=== PATIENT | male | born 1965 | race African-American/Black ===

== ENCOUNTER 2020-10-22 11:21 | Inpatient (IN) | payer OTHER ==
[2020-10-22 12:20] VITALS: BMI 46.7
[2020-10-22] MEDS ORDERED: LORazepam 1 MG TABLET PO PRN (12:36)
[2020-10-22] MEDS ORDERED: MAGNESIUM CITRATE 300 ML BOTTLE PO PRN (12:36)
[2020-10-22] MEDS ORDERED: IBUPROFEN 400 MG TABLET (FP) PO PRN (12:36)
[2020-10-22] MEDS ORDERED: METHOCARBAMOL 500 MG TABLET PO PRN (12:36)
[2020-10-22] MEDS ORDERED: NICOTINE POLACRILEX 2 MG GUM BUC PRN (12:36)
[2020-10-22] MEDS ORDERED: MAG HYDROX/AL HYDROX/SIMETH 30 ML UNIT-DOSE CUP PO PRN (12:36)
[2020-10-22] MEDS ORDERED: ONDANSETRON *ODT* 4 MG TABLET SL PRN (12:36)
[2020-10-22] MEDS ORDERED: ACETAMINOPHEN 325 MG TABLET (FP) PO PRN ×2 (12:36)
[2020-10-22] MEDS ORDERED: MAGNESIUM HYDROX 2400MG/30ML ORAL SUSPENSION 30 ML CUP PO PRN (12:36)
[2020-10-22] MEDS ORDERED: BISMUTH SUBSALICYLATE 262 MG/15 ML BTL PO PRN (12:36)
[2020-10-22] MEDS ORDERED: MENTHOL/PHENOL 1 EACH UD MM PRN (12:36)
[2020-10-22] MEDS: metFORMIN HCL 500 MG TABLET (FP) PO SCH ×2 (13:56→17:35)
[2020-10-22] MEDS: PRENATAL VITAMINS W/ FOLIC ACID TABLET (FP) PO SCH (13:56)
[2020-10-22] MEDS: LISINOPRIL 20 MG TABLET PO SCH (13:56)
[2020-10-22] MEDS: NICOTINE 14 MG/24 HOURS TOPICAL PATCH TD SCH (13:57)
[2020-10-22] MEDS: hydrOXYzine PAMOATE 25 MG CAPSULE (FP) PO SCH ×3 (13:58→23:05)
[2020-10-22] MEDS: ALLOPURINOL 300 MG TABLET (FP) PO SCH (14:01)
[2020-10-22] MEDS: glipiZIDE 5 MG TABLET (FP) PO SCH (14:01)
[2020-10-22 16:05] LABS: BLOOD UREA NITROGEN 13.3 mg/dL (7-18); CALCIUM 9.4 mg/dL (8.5-10.1); HEMATOCRIT 41.5 % (35.4-49); HEMOGLOBIN 13.5 GM/dL (11.7-16.9); MCH 29.4 pg (25.7-33.7); MCHC 32.5 g/dl (32.0-35.9); MEAN CELL VOLUME 90.5 fl (80-96); MEAN PLT VOLUME 7.2 fl (7.5-11.1); PLATELET COUNT 291 10^3/uL (134-434); RBC 4.59 M/mm3 (4.00-5.60); RDW 15.4 % (11.9-15.9); WHITE BLOOD COUNT 9.5 K/mm3 (4.0-10.0)
[2020-10-22 16:09] LABS: CREATININE 1.9 mg/dL (0.55-1.3)
[2020-10-22 16:11] LABS: BILIRUBIN,TOTAL 0.4 mg/dL (0.2-1); TOT PROT 8.2 g/dl (6.4-8.2)
[2020-10-22] MEDS: LORazepam 2 MG TABLET PO SCH ×2 (17:35→23:05)
[2020-10-22] MEDS: ATORVASTATIN CA 40 MG TABLET (FP) PO SCH (23:04)
[2020-10-22] MEDS: MELATONIN 5 MG TABLETS PO SCH (23:05)
[2020-10-22] MEDS: THIAMINE HCL 100 MG TABLET (FP) PO SCH (23:05)
[2020-10-23] MEDS: hydrOXYzine PAMOATE 25 MG CAPSULE (FP) PO SCH ×5 (05:48→22:42)
[2020-10-23] MEDS: LORazepam 2 MG TABLET PO SCH ×4 (05:50→22:41)
[2020-10-23] MEDS: metFORMIN HCL 500 MG TABLET (FP) PO SCH ×2 (06:19→17:35)
[2020-10-23] MEDS: glipiZIDE 5 MG TABLET (FP) PO SCH (06:19)
[2020-10-23] MEDS: PRENATAL VITAMINS W/ FOLIC ACID TABLET (FP) PO SCH (10:28)
[2020-10-23] MEDS: NICOTINE 14 MG/24 HOURS TOPICAL PATCH TD SCH (10:29)
[2020-10-23] MEDS: LISINOPRIL 20 MG TABLET PO SCH (10:29)
[2020-10-23] MEDS: ALLOPURINOL 300 MG TABLET (FP) PO SCH (10:29)
[2020-10-23] MEDS: INSULIN SLIDING SCALE (NOVOLOG) 1 VIAL SQ SCH ×3 (11:30→23:20)
[2020-10-23] MEDS: ATORVASTATIN CA 40 MG TABLET (FP) PO SCH (21:57)
[2020-10-23] MEDS: MELATONIN 5 MG TABLETS PO SCH (22:41)
[2020-10-23] MEDS: THIAMINE HCL 100 MG TABLET (FP) PO SCH (22:42)
[2020-10-24] MEDS: hydrOXYzine PAMOATE 25 MG CAPSULE (FP) PO SCH ×5 (05:18→22:04)
[2020-10-24] MEDS: LORazepam 1 MG TABLET PO SCH ×4 (05:18→22:00)
[2020-10-24] MEDS: INSULIN SLIDING SCALE (NOVOLOG) 1 VIAL SQ SCH ×4 (06:16→21:32)
[2020-10-24] MEDS: glipiZIDE 5 MG TABLET (FP) PO SCH (06:16)
[2020-10-24] MEDS: metFORMIN HCL 500 MG TABLET (FP) PO SCH ×2 (06:16→17:24)
[2020-10-24] MEDS: PRENATAL VITAMINS W/ FOLIC ACID TABLET (FP) PO SCH (10:19)
[2020-10-24] MEDS: NICOTINE 14 MG/24 HOURS TOPICAL PATCH TD SCH (10:20)
[2020-10-24] MEDS: LISINOPRIL 20 MG TABLET PO SCH (10:20)
[2020-10-24] MEDS: ALLOPURINOL 100 MG TABLET (FP) PO SCH (10:21)
[2020-10-24] MEDS: ATORVASTATIN CA 40 MG TABLET (FP) PO SCH (22:00)
[2020-10-24] MEDS: THIAMINE HCL 100 MG TABLET (FP) PO SCH (22:00)
[2020-10-24] MEDS: MELATONIN 5 MG TABLETS PO SCH (22:00)
[2020-10-25] MEDS ORDERED: LORazepam 0.5 MG TABLET PO PRN
[2020-10-25] MEDS: hydrOXYzine PAMOATE 25 MG CAPSULE (FP) PO SCH ×5 (06:06→22:41)
[2020-10-25] MEDS: LORazepam 0.5 MG TABLET PO SCH ×4 (06:09→22:42)
[2020-10-25] MEDS: metFORMIN HCL 500 MG TABLET (FP) PO SCH ×2 (06:10→18:08)
[2020-10-25] MEDS: glipiZIDE 5 MG TABLET (FP) PO SCH (06:10)
[2020-10-25] MEDS: INSULIN SLIDING SCALE (NOVOLOG) 1 VIAL SQ SCH ×4 (06:13→22:48)
[2020-10-25] MEDS: NICOTINE 14 MG/24 HOURS TOPICAL PATCH TD SCH (10:10)
[2020-10-25] MEDS: PRENATAL VITAMINS W/ FOLIC ACID TABLET (FP) PO SCH (10:10)
[2020-10-25] MEDS: LISINOPRIL 20 MG TABLET PO SCH (10:10)
[2020-10-25] MEDS: ALLOPURINOL 100 MG TABLET (FP) PO SCH (10:10)
[2020-10-25 12:32] LABS: CALCIUM 9.8 mg/dL (8.5-10.1)
[2020-10-25 12:33] LABS: BLOOD UREA NITROGEN 17.1 mg/dL (7-18)
[2020-10-25 12:36] LABS: CREATININE 1.3 mg/dL (0.55-1.3)
[2020-10-25] MEDS ORDERED: ALLOPURINOL 100 MG TABLET (FP) PO ONE ×2 (13:34→13:35)
[2020-10-25] MEDS: THIAMINE HCL 100 MG TABLET (FP) PO SCH (22:41)
[2020-10-25] MEDS: ATORVASTATIN CA 40 MG TABLET (FP) PO SCH (22:41)
[2020-10-25] MEDS: MELATONIN 5 MG TABLETS PO SCH (22:41)
[2020-10-26] MEDS ORDERED: LORazepam 0.5 MG TABLET PO ONE (05:00)
[2020-10-26] MEDS: hydrOXYzine PAMOATE 25 MG CAPSULE (FP) PO SCH ×2 (05:26→09:00)
[2020-10-26] MEDS: glipiZIDE 5 MG TABLET (FP) PO SCH (06:02)
[2020-10-26] MEDS: metFORMIN HCL 500 MG TABLET (FP) PO SCH (06:02)
[2020-10-26] MEDS: INSULIN SLIDING SCALE (NOVOLOG) 1 VIAL SQ SCH (06:03)
[2020-10-26] MEDS: NICOTINE 14 MG/24 HOURS TOPICAL PATCH TD SCH (09:00)
[2020-10-26] MEDS: LISINOPRIL 20 MG TABLET PO SCH (09:00)
[2020-10-26] MEDS: PRENATAL VITAMINS W/ FOLIC ACID TABLET (FP) PO SCH (09:00)
[2020-10-26] MEDS ORDERED: ALLOPURINOL 300 MG TABLET (FP) PO SCH (10:00)
[2020-10-26 10:05] VITALS: BP 135/88; PULSE 108; TEMP 97.9
== END 2020-10-26 09:36 | disposition home or self-care (01) | DRG 774 ==
LOC: YASAS 11:21 → Y6N 12:39
PROVIDERS: ADMIT Allergy & Immunology; ATTEND Allergy & Immunology
PROC: HZ2ZZZZ Detoxification Services for Substance Abuse Treatment (ICD-10-PCS; principal; 2020-10-22)
DX: F10.230 Alcohol dependence with withdrawal, uncomplicated (principal); F14.20 Cocaine dependence, uncomplicated; F17.210 Nicotine dependence, cigarettes, uncomplicated; I10 Essential (primary) hypertension; E78.5 Hyperlipidemia, unspecified; E11.9 Type 2 diabetes mellitus without complications; R79.89 Other specified abnormal findings of blood chemistry; M10.9 Gout, unspecified; E66.9 Obesity, unspecified; Z68.42 Body mass index [BMI] 45.0-49.9, adult; R00.0 Tachycardia, unspecified; Z79.84 Long term (current) use of oral hypoglycemic drugs; Z59.0 Homelessness
CPT/HCPCS: 36415; 71046-TC-FY; 80048; 80053; 82962; 85027; 86780; 93005; 93010; C9803; U0003; U0005

== ENCOUNTER 2021-08-26 13:45 | Inpatient (IN) | payer OTHER ==
[2021-08-26 14:27] VITALS: BMI 41.1
[2021-08-26] MEDS ORDERED: guaiFENesin 200 MG/10 ML 10 ML UNIT-DOSE CUPS PO PRN (15:20)
[2021-08-26] MEDS ORDERED: MAGNESIUM HYDROX 2400MG/30ML ORAL SUSPENSION 30 ML CUP PO PRN (15:20)
[2021-08-26] MEDS ORDERED: MAGNESIUM CITRATE 300 ML BOTTLE PO PRN (15:20)
[2021-08-26] MEDS ORDERED: NICOTINE 10 MG CARTRIDGE (INHALER) IH PRN (15:20)
[2021-08-26] MEDS ORDERED: MAG HYDROX/AL HYDROX/SIMETH 30 ML UNIT-DOSE CUP PO PRN (15:20)
[2021-08-26] MEDS ORDERED: LOPERAMIDE HCL 2 MG CAPSULE PO PRN (15:20)
[2021-08-26] MEDS ORDERED: P-EPHED 60MG/TRIPROLIDI 2.5MG TABLET PO PRN (15:20)
[2021-08-26] MEDS ORDERED: IBUPROFEN 400 MG TABLET (FP) PO PRN (15:20)
[2021-08-26] MEDS ORDERED: NALOXONE HCL 0.4 MG/ML VIAL IM PRN (15:20)
[2021-08-26] MEDS: MELATONIN 5 MG TABLETS PO SCH (21:51)
[2021-08-26] MEDS: THIAMINE HCL 100 MG TABLET (FP) PO SCH (21:51)
[2021-08-26] MEDS: NICOTINE 7 MG/24 HOURS TOPICAL PATCH TD SCH (21:51)
[2021-08-26] MEDS: hydrOXYzine PAMOATE 25 MG CAPSULE (FP) PO SCH (21:51)
[2021-08-27] MEDS: hydrOXYzine PAMOATE 25 MG CAPSULE (FP) PO SCH ×5 (06:09→21:21)
[2021-08-27] MEDS ORDERED: ALLOPURINOL 300 MG TABLET (FP) PO SCH (10:00)
[2021-08-27] MEDS: NICOTINE 7 MG/24 HOURS TOPICAL PATCH TD SCH (10:21)
[2021-08-27] MEDS: metFORMIN HCL 500 MG TABLET (FP) PO SCH ×2 (10:21→16:38)
[2021-08-27] MEDS: LISINOPRIL 20 MG TABLET PO SCH (10:21)
[2021-08-27] MEDS: PRENATAL VITAMINS W/ FOLIC ACID TABLET (FP) PO SCH (10:21)
[2021-08-27] MEDS: glipiZIDE 5 MG TABLET (FP) PO SCH (10:21)
[2021-08-27] MEDS: ALLOPURINOL 100 MG TABLET (FP) PO SCH (12:55)
[2021-08-27 13:51] LABS: HEMATOCRIT 39.1 % (35.4-49); HEMOGLOBIN 12.5 GM/dL (11.7-16.9); MCHC 31.9 g/dl (32.0-35.9); MEAN PLT VOLUME 7.8 fl (7.5-11.1); PLATELET COUNT 270 10^3/uL (134-434); RBC 4.16 M/mm3 (4.00-5.60); RDW 15.3 % (11.9-15.9); WHITE BLOOD COUNT 8.2 K/mm3 (4.0-10.0)
[2021-08-27 14:11] LABS: CALCIUM 9.2 mg/dL (8.5-10.1)
[2021-08-27 14:12] LABS: ALBUMIN 3.4 g/dl (3.4-5.0)
[2021-08-27 14:15] LABS: BILIRUBIN,TOTAL 0.3 mg/dL (0.2-1)
[2021-08-27 14:17] LABS: TOT PROT 6.8 g/dl (6.4-8.2)
[2021-08-27 14:19] LABS: BLOOD UREA NITROGEN 16.6 mg/dL (7-18); CREATININE 1.2 mg/dL (0.55-1.3)
[2021-08-27 14:59] LABS: SYPHILIS W/ RPR CONF NON-REACTIVE (NONREACTIVE)
[2021-08-27 19:15] LABS: EPI CELLS 22 /uL (0-25.1); HYALINE CASTS 1 /uL (0-3.1); PH,URINE 5.5 (5.0-8.0); URINE APPEARANCE CLEAR; URINE BACTERIA 162 /uL (0-1359); URINE BILIRUBIN NEGATIVE (NEGATIVE); URINE COLOR YELLOW; URINE GLUCOSE (UA) NEGATIVE (NEGATIVE); URINE KETONE NEGATIVE (NEGATIVE); URINE LEUK ESTERASE NEGATIVE (NEGATIVE); URINE NITRITE NEGATIVE (NEGATIVE); URINE PROTEIN 1+ (NEGATIVE); URINE RBC 8 /uL (0-23.9); URINE UROBILINOGEN 0.2 mg/dL (0.2-1.0); URINE WBC 11 /uL (0-25.8)
[2021-08-27] MEDS: THIAMINE HCL 100 MG TABLET (FP) PO SCH (21:19)
[2021-08-27] MEDS: ACETAMINOPHEN 325 MG TABLET (FP) PO PRN (21:20)
[2021-08-27] MEDS: ATORVASTATIN CA 40 MG TABLET (FP) PO SCH (21:20)
[2021-08-27] MEDS: MELATONIN 5 MG TABLETS PO SCH (21:21)
[2021-08-28] MEDS: metFORMIN HCL 500 MG TABLET (FP) PO SCH ×2 (06:46→16:37)
[2021-08-28] MEDS: glipiZIDE 5 MG TABLET (FP) PO SCH (06:46)
[2021-08-28] MEDS: hydrOXYzine PAMOATE 25 MG CAPSULE (FP) PO SCH ×5 (06:47→21:40)
[2021-08-28] MEDS: NICOTINE 7 MG/24 HOURS TOPICAL PATCH TD SCH (10:11)
[2021-08-28] MEDS: PRENATAL VITAMINS W/ FOLIC ACID TABLET (FP) PO SCH (10:11)
[2021-08-28] MEDS: LISINOPRIL 20 MG TABLET PO SCH (10:11)
[2021-08-28] MEDS: ALLOPURINOL 100 MG TABLET (FP) PO SCH (10:12)
[2021-08-28 11:11] LABS: SARS-CoV-2 NAA Not Detected (Not Detected)
[2021-08-28] MEDS: INSULIN SLIDING SCALE (NOVOLOG) 1 VIAL SQ SCH (16:38)
[2021-08-28] MEDS: THIAMINE HCL 100 MG TABLET (FP) PO SCH (21:39)
[2021-08-28] MEDS: ATORVASTATIN CA 40 MG TABLET (FP) PO SCH (21:39)
[2021-08-28] MEDS: MELATONIN 5 MG TABLETS PO SCH (21:39)
[2021-08-29] MEDS: glipiZIDE 5 MG TABLET (FP) PO SCH (06:59)
[2021-08-29] MEDS: metFORMIN HCL 500 MG TABLET (FP) PO SCH ×2 (06:59→16:40)
[2021-08-29] MEDS: hydrOXYzine PAMOATE 25 MG CAPSULE (FP) PO SCH ×5 (07:00→21:26)
[2021-08-29] MEDS: INSULIN SLIDING SCALE (NOVOLOG) 1 VIAL SQ SCH ×2 (07:54→16:40)
[2021-08-29] MEDS: COLCHICINE 0.6 MG CAPSULE PO SCH (10:46)
[2021-08-29] MEDS: ASPIRIN COATED 81 MG TABLET.EC PO SCH (10:46)
[2021-08-29] MEDS: LISINOPRIL 20 MG TABLET PO SCH (10:47)
[2021-08-29] MEDS: ALLOPURINOL 100 MG TABLET (FP) PO SCH (10:47)
[2021-08-29] MEDS: PRENATAL VITAMINS W/ FOLIC ACID TABLET (FP) PO SCH (10:50)
[2021-08-29] MEDS: NICOTINE 7 MG/24 HOURS TOPICAL PATCH TD SCH (11:36)
[2021-08-29] MEDS: ATORVASTATIN CA 40 MG TABLET (FP) PO SCH (21:25)
[2021-08-29] MEDS: THIAMINE HCL 100 MG TABLET (FP) PO SCH (21:25)
[2021-08-29] MEDS: MELATONIN 5 MG TABLETS PO SCH (21:26)
[2021-08-30] MEDS: metFORMIN HCL 500 MG TABLET (FP) PO SCH ×2 (06:03→16:53)
[2021-08-30] MEDS: hydrOXYzine PAMOATE 25 MG CAPSULE (FP) PO SCH ×5 (06:03→21:24)
[2021-08-30] MEDS: glipiZIDE 5 MG TABLET (FP) PO SCH (06:03)
[2021-08-30] MEDS: INSULIN SLIDING SCALE (NOVOLOG) 1 VIAL SQ SCH ×2 (07:21→17:20)
[2021-08-30] MEDS: PRENATAL VITAMINS W/ FOLIC ACID TABLET (FP) PO SCH (10:23)
[2021-08-30] MEDS: ALLOPURINOL 100 MG TABLET (FP) PO SCH (10:24)
[2021-08-30] MEDS: ASPIRIN COATED 81 MG TABLET.EC PO SCH (10:24)
[2021-08-30] MEDS: LISINOPRIL 20 MG TABLET PO SCH (10:24)
[2021-08-30] MEDS: COLCHICINE 0.6 MG CAPSULE PO SCH (10:24)
[2021-08-30] MEDS: NICOTINE 7 MG/24 HOURS TOPICAL PATCH TD SCH (10:25)
[2021-08-30] MEDS: ATORVASTATIN CA 40 MG TABLET (FP) PO SCH (21:23)
[2021-08-30] MEDS: MELATONIN 5 MG TABLETS PO SCH (21:24)
[2021-08-30] MEDS: THIAMINE HCL 100 MG TABLET (FP) PO SCH (21:24)
[2021-08-30] MEDS ORDERED: INSULIN SLIDING SCALE (NOVOLOG) 1 VIAL SQ ONE (22:18)
[2021-08-31] MEDS: hydrOXYzine PAMOATE 25 MG CAPSULE (FP) PO SCH ×5 (06:19→21:34)
[2021-08-31] MEDS: glipiZIDE 5 MG TABLET (FP) PO SCH (06:20)
[2021-08-31] MEDS: metFORMIN HCL 500 MG TABLET (FP) PO SCH ×2 (06:20→17:10)
[2021-08-31] MEDS: INSULIN SLIDING SCALE (NOVOLOG) 1 VIAL SQ SCH ×2 (06:22→17:11)
[2021-08-31] MEDS: LISINOPRIL 20 MG TABLET PO SCH (10:37)
[2021-08-31] MEDS: PRENATAL VITAMINS W/ FOLIC ACID TABLET (FP) PO SCH (10:37)
[2021-08-31] MEDS: ASPIRIN COATED 81 MG TABLET.EC PO SCH (10:38)
[2021-08-31] MEDS: NICOTINE 7 MG/24 HOURS TOPICAL PATCH TD SCH (10:38)
[2021-08-31] MEDS: ALLOPURINOL 100 MG TABLET (FP) PO SCH (10:38)
[2021-08-31] MEDS: COLCHICINE 0.6 MG CAPSULE PO SCH (12:22)
[2021-08-31] MEDS: ATORVASTATIN CA 40 MG TABLET (FP) PO SCH (21:33)
[2021-08-31] MEDS: THIAMINE HCL 100 MG TABLET (FP) PO SCH (21:34)
[2021-08-31] MEDS: MELATONIN 5 MG TABLETS PO SCH (21:34)
[2021-09-01] MEDS: hydrOXYzine PAMOATE 25 MG CAPSULE (FP) PO SCH ×5 (06:02→21:17)
[2021-09-01] MEDS: glipiZIDE 5 MG TABLET (FP) PO SCH (06:03)
[2021-09-01] MEDS: metFORMIN HCL 500 MG TABLET (FP) PO SCH ×2 (06:03→16:42)
[2021-09-01] MEDS: INSULIN SLIDING SCALE (NOVOLOG) 1 VIAL SQ SCH ×2 (06:05→16:43)
[2021-09-01] MEDS: LISINOPRIL 20 MG TABLET PO SCH (10:26)
[2021-09-01] MEDS: NICOTINE 7 MG/24 HOURS TOPICAL PATCH TD SCH (10:26)
[2021-09-01] MEDS: ASPIRIN COATED 81 MG TABLET.EC PO SCH (10:26)
[2021-09-01] MEDS: PRENATAL VITAMINS W/ FOLIC ACID TABLET (FP) PO SCH (10:26)
[2021-09-01] MEDS: COLCHICINE 0.6 MG CAPSULE PO SCH (11:21)
[2021-09-01] MEDS: ALLOPURINOL 100 MG TABLET (FP) PO SCH (11:22)
[2021-09-01] MEDS: ACETAMINOPHEN 325 MG TABLET (FP) PO PRN (19:32)
[2021-09-01] MEDS: THIAMINE HCL 100 MG TABLET (FP) PO SCH (21:16)
[2021-09-01] MEDS: MELATONIN 5 MG TABLETS PO SCH (21:17)
[2021-09-01] MEDS: ATORVASTATIN CA 40 MG TABLET (FP) PO SCH (21:17)
[2021-09-02] MEDS: metFORMIN HCL 500 MG TABLET (FP) PO SCH ×2 (06:04→16:04)
[2021-09-02] MEDS: hydrOXYzine PAMOATE 25 MG CAPSULE (FP) PO SCH ×5 (06:04→21:10)
[2021-09-02] MEDS: INSULIN SLIDING SCALE (NOVOLOG) 1 VIAL SQ SCH ×2 (06:05→16:04)
[2021-09-02] MEDS: glipiZIDE 5 MG TABLET (FP) PO SCH (06:05)
[2021-09-02] MEDS: COLCHICINE 0.6 MG CAPSULE PO SCH (10:34)
[2021-09-02] MEDS: ASPIRIN COATED 81 MG TABLET.EC PO SCH (10:34)
[2021-09-02] MEDS: NICOTINE 7 MG/24 HOURS TOPICAL PATCH TD SCH (10:34)
[2021-09-02] MEDS: LISINOPRIL 20 MG TABLET PO SCH (10:35)
[2021-09-02] MEDS: PRENATAL VITAMINS W/ FOLIC ACID TABLET (FP) PO SCH (10:35)
[2021-09-02] MEDS: ALLOPURINOL 100 MG TABLET (FP) PO SCH (10:36)
[2021-09-02] MEDS: THIAMINE HCL 100 MG TABLET (FP) PO SCH (21:09)
[2021-09-02] MEDS: ATORVASTATIN CA 40 MG TABLET (FP) PO SCH (21:09)
[2021-09-02] MEDS: MELATONIN 5 MG TABLETS PO SCH (21:10)
[2021-09-03] MEDS: hydrOXYzine PAMOATE 25 MG CAPSULE (FP) PO SCH ×5 (05:56→21:10)
[2021-09-03] MEDS: metFORMIN HCL 500 MG TABLET (FP) PO SCH ×2 (06:10→16:38)
[2021-09-03] MEDS: glipiZIDE 5 MG TABLET (FP) PO SCH (06:10)
[2021-09-03] MEDS: INSULIN SLIDING SCALE (NOVOLOG) 1 VIAL SQ SCH ×2 (06:11→16:39)
[2021-09-03] MEDS: ACETAMINOPHEN 325 MG TABLET (FP) PO PRN ×2 (06:55→17:07)
[2021-09-03] MEDS: ALLOPURINOL 100 MG TABLET (FP) PO SCH (10:11)
[2021-09-03] MEDS: ASPIRIN COATED 81 MG TABLET.EC PO SCH (10:11)
[2021-09-03] MEDS: LISINOPRIL 20 MG TABLET PO SCH (10:11)
[2021-09-03] MEDS: COLCHICINE 0.6 MG CAPSULE PO SCH (10:11)
[2021-09-03] MEDS: NICOTINE 7 MG/24 HOURS TOPICAL PATCH TD SCH (10:12)
[2021-09-03] MEDS: PRENATAL VITAMINS W/ FOLIC ACID TABLET (FP) PO SCH (10:12)
[2021-09-03] MEDS: ATORVASTATIN CA 40 MG TABLET (FP) PO SCH (21:10)
[2021-09-03] MEDS: THIAMINE HCL 100 MG TABLET (FP) PO SCH (21:11)
[2021-09-03] MEDS: MELATONIN 5 MG TABLETS PO SCH (21:11)
[2021-09-04] MEDS: glipiZIDE 5 MG TABLET (FP) PO SCH (06:02)
[2021-09-04] MEDS: hydrOXYzine PAMOATE 25 MG CAPSULE (FP) PO SCH ×5 (06:02→21:20)
[2021-09-04] MEDS: metFORMIN HCL 500 MG TABLET (FP) PO SCH ×2 (06:03→16:47)
[2021-09-04] MEDS: INSULIN SLIDING SCALE (NOVOLOG) 1 VIAL SQ SCH ×2 (06:26→16:50)
[2021-09-04] MEDS: ACETAMINOPHEN 325 MG TABLET (FP) PO PRN ×3 (06:45→21:19)
[2021-09-04] MEDS: COLCHICINE 0.6 MG CAPSULE PO SCH (10:18)
[2021-09-04] MEDS: PRENATAL VITAMINS W/ FOLIC ACID TABLET (FP) PO SCH (10:19)
[2021-09-04] MEDS: ALLOPURINOL 100 MG TABLET (FP) PO SCH (10:19)
[2021-09-04] MEDS: LISINOPRIL 20 MG TABLET PO SCH (10:19)
[2021-09-04] MEDS: ASPIRIN COATED 81 MG TABLET.EC PO SCH (10:19)
[2021-09-04] MEDS: NICOTINE 7 MG/24 HOURS TOPICAL PATCH TD SCH (10:20)
[2021-09-04] MEDS ORDERED: TUBERCULIN PPD 5 TU/0.1ML VIAL ID ONE (17:25)
[2021-09-04] MEDS: THIAMINE HCL 100 MG TABLET (FP) PO SCH (21:18)
[2021-09-04] MEDS: MELATONIN 5 MG TABLETS PO SCH (21:18)
[2021-09-04] MEDS: ATORVASTATIN CA 40 MG TABLET (FP) PO SCH (21:18)
[2021-09-05] MEDS: hydrOXYzine PAMOATE 25 MG CAPSULE (FP) PO SCH ×5 (06:26→21:20)
[2021-09-05] MEDS: metFORMIN HCL 500 MG TABLET (FP) PO SCH ×2 (06:27→16:43)
[2021-09-05] MEDS: glipiZIDE 5 MG TABLET (FP) PO SCH (06:27)
[2021-09-05] MEDS: ACETAMINOPHEN 325 MG TABLET (FP) PO PRN ×2 (06:28→21:21)
[2021-09-05] MEDS: INSULIN SLIDING SCALE (NOVOLOG) 1 VIAL SQ SCH ×2 (07:01→17:33)
[2021-09-05] MEDS: LISINOPRIL 20 MG TABLET PO SCH (10:01)
[2021-09-05] MEDS: PRENATAL VITAMINS W/ FOLIC ACID TABLET (FP) PO SCH (10:01)
[2021-09-05] MEDS: NICOTINE 7 MG/24 HOURS TOPICAL PATCH TD SCH (10:02)
[2021-09-05] MEDS: COLCHICINE 0.6 MG CAPSULE PO SCH (10:04)
[2021-09-05] MEDS: ASPIRIN COATED 81 MG TABLET.EC PO SCH (10:04)
[2021-09-05] MEDS: ALLOPURINOL 100 MG TABLET (FP) PO SCH (10:06)
[2021-09-05] MEDS: MELATONIN 5 MG TABLETS PO SCH (21:20)
[2021-09-05] MEDS: ATORVASTATIN CA 40 MG TABLET (FP) PO SCH (21:20)
[2021-09-05] MEDS: THIAMINE HCL 100 MG TABLET (FP) PO SCH (21:20)
[2021-09-06] MEDS: glipiZIDE 5 MG TABLET (FP) PO SCH (06:02)
[2021-09-06] MEDS: metFORMIN HCL 500 MG TABLET (FP) PO SCH ×2 (06:02→16:38)
[2021-09-06] MEDS: hydrOXYzine PAMOATE 25 MG CAPSULE (FP) PO SCH ×6 (06:04→21:34)
[2021-09-06] MEDS: ACETAMINOPHEN 325 MG TABLET (FP) PO PRN ×3 (07:05→21:33)
[2021-09-06] MEDS: INSULIN SLIDING SCALE (NOVOLOG) 1 VIAL SQ SCH ×2 (07:07→16:38)
[2021-09-06] MEDS: PRENATAL VITAMINS W/ FOLIC ACID TABLET (FP) PO SCH (10:35)
[2021-09-06] MEDS: LISINOPRIL 20 MG TABLET PO SCH (10:35)
[2021-09-06] MEDS: ASPIRIN COATED 81 MG TABLET.EC PO SCH (10:35)
[2021-09-06] MEDS: COLCHICINE 0.6 MG CAPSULE PO SCH (10:36)
[2021-09-06] MEDS: NICOTINE 7 MG/24 HOURS TOPICAL PATCH TD SCH (10:36)
[2021-09-06] MEDS: ALLOPURINOL 100 MG TABLET (FP) PO SCH (10:36)
[2021-09-06] MEDS: MELATONIN 5 MG TABLETS PO SCH (21:32)
[2021-09-06] MEDS: ATORVASTATIN CA 40 MG TABLET (FP) PO SCH (21:32)
[2021-09-06] MEDS: THIAMINE HCL 100 MG TABLET (FP) PO SCH (21:32)
[2021-09-07] MEDS: ACETAMINOPHEN 325 MG TABLET (FP) PO PRN ×4 (05:59→21:33)
[2021-09-07] MEDS: glipiZIDE 5 MG TABLET (FP) PO SCH (06:00)
[2021-09-07] MEDS: hydrOXYzine PAMOATE 25 MG CAPSULE (FP) PO SCH ×5 (06:00→21:04)
[2021-09-07] MEDS: metFORMIN HCL 500 MG TABLET (FP) PO SCH ×2 (06:00→16:45)
[2021-09-07] MEDS: INSULIN SLIDING SCALE (NOVOLOG) 1 VIAL SQ SCH ×2 (06:02→16:30)
[2021-09-07] MEDS: ASPIRIN COATED 81 MG TABLET.EC PO SCH (09:56)
[2021-09-07] MEDS: COLCHICINE 0.6 MG CAPSULE PO SCH (09:56)
[2021-09-07] MEDS: ALLOPURINOL 100 MG TABLET (FP) PO SCH (09:56)
[2021-09-07] MEDS: PRENATAL VITAMINS W/ FOLIC ACID TABLET (FP) PO SCH (09:56)
[2021-09-07] MEDS: LISINOPRIL 20 MG TABLET PO SCH (09:57)
[2021-09-07] MEDS: NICOTINE 7 MG/24 HOURS TOPICAL PATCH TD SCH (09:57)
[2021-09-07] MEDS: MELATONIN 5 MG TABLETS PO SCH (21:04)
[2021-09-07] MEDS: ATORVASTATIN CA 40 MG TABLET (FP) PO SCH (21:04)
[2021-09-07] MEDS: THIAMINE HCL 100 MG TABLET (FP) PO SCH (21:04)
[2021-09-08] MEDS: ACETAMINOPHEN 325 MG TABLET (FP) PO PRN ×4 (05:55→22:25)
[2021-09-08] MEDS: hydrOXYzine PAMOATE 25 MG CAPSULE (FP) PO SCH ×2 (05:59→10:25)
[2021-09-08] MEDS: glipiZIDE 5 MG TABLET (FP) PO SCH (06:27)
[2021-09-08] MEDS: metFORMIN HCL 500 MG TABLET (FP) PO SCH ×2 (06:28→17:05)
[2021-09-08] MEDS: INSULIN SLIDING SCALE (NOVOLOG) 1 VIAL SQ SCH ×2 (06:28→17:11)
[2021-09-08] MEDS: ASPIRIN COATED 81 MG TABLET.EC PO SCH (10:24)
[2021-09-08] MEDS: LISINOPRIL 20 MG TABLET PO SCH (10:24)
[2021-09-08] MEDS: PRENATAL VITAMINS W/ FOLIC ACID TABLET (FP) PO SCH (10:25)
[2021-09-08] MEDS: ALLOPURINOL 100 MG TABLET (FP) PO SCH (10:25)
[2021-09-08] MEDS: NICOTINE 7 MG/24 HOURS TOPICAL PATCH TD SCH (10:25)
[2021-09-08] MEDS: COLCHICINE 0.6 MG CAPSULE PO SCH (10:25)
[2021-09-08] MEDS ORDERED: hydrOXYzine PAMOATE 25 MG CAPSULE (FP) PO PRN (10:54)
[2021-09-08] MEDS ORDERED: INSULIN SLIDING SCALE (NOVOLOG) 1 VIAL SQ ONE (17:06)
[2021-09-08] MEDS: MELATONIN 5 MG TABLETS PO SCH (21:12)
[2021-09-08] MEDS: THIAMINE HCL 100 MG TABLET (FP) PO SCH (21:12)
[2021-09-08] MEDS: ATORVASTATIN CA 40 MG TABLET (FP) PO SCH (21:13)
[2021-09-09] MEDS: glipiZIDE 5 MG TABLET (FP) PO SCH (06:21)
[2021-09-09] MEDS: metFORMIN HCL 500 MG TABLET (FP) PO SCH (06:22)
[2021-09-09] MEDS: INSULIN SLIDING SCALE (NOVOLOG) 1 VIAL SQ SCH (07:03)
[2021-09-09] MEDS: ACETAMINOPHEN 325 MG TABLET (FP) PO PRN (07:04)
[2021-09-09 07:34] VITALS: BP 126/74; PULSE 91; TEMP 96.9
[2021-09-09] MEDS: ASPIRIN COATED 81 MG TABLET.EC PO SCH (09:18)
[2021-09-09] MEDS: PRENATAL VITAMINS W/ FOLIC ACID TABLET (FP) PO SCH (09:18)
[2021-09-09] MEDS: LISINOPRIL 20 MG TABLET PO SCH (09:19)
[2021-09-09] MEDS: COLCHICINE 0.6 MG CAPSULE PO SCH (09:19)
[2021-09-09] MEDS: NICOTINE 7 MG/24 HOURS TOPICAL PATCH TD SCH (09:19)
[2021-09-09] MEDS: ALLOPURINOL 100 MG TABLET (FP) PO SCH (09:19)
== END 2021-09-09 09:26 | disposition home or self-care (01) | DRG 772 ==
LOC: YASAS 13:45 → Y3W 19:53
PROVIDERS: ADMIT Allergy & Immunology; ATTEND Allergy & Immunology
PROC: HZ42ZZZ Group Counseling for Substance Abuse Treatment, Cognitive-Behavioral (ICD-10-PCS; principal; 2021-08-26)
DX: F10.20 Alcohol dependence, uncomplicated (principal); F14.20 Cocaine dependence, uncomplicated; F17.210 Nicotine dependence, cigarettes, uncomplicated; I10 Essential (primary) hypertension; E78.5 Hyperlipidemia, unspecified; E11.9 Type 2 diabetes mellitus without complications; Z79.84 Long term (current) use of oral hypoglycemic drugs; M17.11 Unilateral primary osteoarthritis, right knee; M16.11 Unilateral primary osteoarthritis, right hip; M10.9 Gout, unspecified; E66.01 Morbid (severe) obesity due to excess calories; Z68.41 Body mass index [BMI] 40.0-44.9, adult
CPT/HCPCS: 36415; 80053; 81003; 82962; 85027; 86780; 86803; C9803-CS; U0003; U0005